=== PATIENT | female | born 1945 | race Caucasian/White ===

== ENCOUNTER 2018-10-10 23:13 | Emergency (ER) | payer OTHER, BC ==
[2018-10-10 23:16] VITALS: BP 132/78; PULSE 107; TEMP 98.2; BMI 25.4
--- NOTE | 2018-10-10 23:49 | PDOC ---
History of Present Illness - General Chief Complaint: Back Pain Stated Complaint: BACK PAIN Time Seen by Provider: 10/10/18 23:48 - History of Present Illness Initial Comments: 73 year old female with HTN presenting with right mid back pain for the past two weeks. States that the pain was sudden onset and she finds it hard to breath in completely. She denies any recent travel or OCP use. 10/11/18 00:35 Past History - Past Medical History Allergies/Adverse Reactions: Allergies Allergy/AdvReac Type Severity Reaction Status Date / Time Penicillins Allergy Verified 10/10/18 23:15 Home Medications: Ambulatory Orders Pantoprazole Sodium [Protonix -] 40 mg PO DAILY #30 tablet.ec 06/20/15 Cyclobenzaprine HCl [Flexeril -] 10 mg PO HS #20 tablet 10/11/18 Anemia: No Asthma: No Cancer: Yes (LT BREAST) Cardiac Disorders: No CVA: No COPD: No CHF: No Dementia: No Diabetes: No GI Disorders: Yes (ABD. PAIN, REFLUX, COLON POLYP, HEMORRHOIDS) Disorders: Yes (EPIGASTRIC PAIN,VOMITING,VIRAL GASTROENTERITIS,HEMORRHOIDS, COLON POLYPS,) HTN: Yes Hypercholesterolemia: No Liver Disease: No Seizures: No Thyroid Disease: No - Surgical History Abdominal Surgery: No Appendectomy: No Cardiac Surgery: No Cholecystectomy: No Lung Surgery: No Neurologic Surgery: No Orthopedic Surgery: No - Suicide/Smoking/Psychosocial Hx Smoking History: Never smoked Have you smoked in the past 12 months: No If you are a former smoker, when did you quit?: 1979 Hx Alcohol Use: No Drug/Substance Use Hx: No Substance Use Type: None Hx Substance Use Treatment: No *Physical Exam - Vital Signs Last Vital Signs Temp Pulse Resp BP Pulse Ox 98.2 F 107 H 20 132/78 99 10/10/18 23:15 10/10/18 23:15 10/10/18 23:15 10/10/18 23:15 10/10/18 23:15 Moderate Sedation - Procedure Monitoring Vital Signs: Procedure Monitoring Vital Signs Temperature 98.2 F 10/10/18 23:15 Pulse Rate 107 H 10/10/18 23:15 Respiratory Rate 20 10/10/18 23:15 Blood Pressure 132/78 10/10/18 23:15 O2 Sat by Pulse Oximetry (%) 99 10/10/18 23:15 ED Treatment Course - LABORATORY CBC & Chemistry Diagram: 10/11/18 01:16 10/11/18 01:16 *DC/Admit/Observation/Transfer Diagnosis at time of Disposition: Back pain Qualifiers: Back pain location: low back pain Chronicity: acute Back pain laterality: right Sciatica presence: without sciatica Qualified Code(s): M54.5 - Low back pain - Discharge Dispostion Disposition: HOME Condition at time of disposition: Improved - Prescriptions Prescriptions: Cyclobenzaprine HCl [Flexeril -] 10 mg PO HS #20 tablet - Referrals Referrals: [facility] [Provider Group] - Patient Instructions Printed Discharge Instructions: DI for Low Back Pain Additional Instructions: You do not have a clot. Please use Tylenol for your back pain and flexural as directed. Please follow up with your primary care doctor or you can use our clinic if needed. Pelae return ot the ED if you have new or worsening symptoms. - Post Discharge Activity
[2018-10-11] MEDS ORDERED: diazePAM 5 MG TABLET PO ONE (00:37)
[2018-10-11] MEDS ORDERED: diazePAM 5 MG TABLET ONE (00:57)
--- NOTE | 2018-10-11 01:01 | PDOC ---
Attending Attestation - Resident Resident Name: SashaFlorecitabethjoseph - ED Attending Attestation I have performed the following: I have examined & evaluated the patient, The case was reviewed & discussed with the resident, I agree w/resident's findings & plan - HPI HPI: 10/11/18 01:33 Ms. Javed is a 73 year old female, with past medical history significant for breast cancer s/p L breast lumpectomy and HTN, presents to the emergency department with 2 weeks of right sided back pain, worse with movement. she denies trauma or falls, but does admit to carrying her grandchild around. she gets short of breath with movement and when the back spasms occur. no cp, AP, flank pain, urinary sx, hematuria, chatman or dizziness, neuro changes, weakness or paresthesias. - Physicial Exam PE: 10/11/18 01:01 NAD, well appearing, PERRL, EOMI, MMM, nl conjunctiva, anicteric; neck supple. lungs clear, RRR, abdomen soft nontender. +right thoracic back TTP and palp spasms, paraspinal. no CVAT. GIL x4, no focal neuro deficits. No peripheral edema. normal color for ethnicity, WWP. 10/11/18 01:35 - Medical Decision Making 10/11/18 01:01 See HPI for details Vital signs reviewed, wnl. tachycardia 2/2 pain. no hypoxia, lungs clear Prior notes reviewed, including admissions, discharges and consultations. laboratory results and imaging reviewed, basic labs and lytes wnl, notable for_ . UA_ dimer_elevated 1880 - will need CTA chest to r/o PE (less likely dissection, as this is 2 wk history, no neuro deficits and no acute onset cp). EKG normal sinus rhythm, no interval abnormalities, narrow QRS, ST and T wave segments and morphology normal. Nonspecific T wave abnormalities ED course: analgesia, topical lidoderm, valium for intense spasms. reassess. most likely msk strain vs spasms. with very reproducible tenderness along back and 2 week history considered but unlikely dissection or ACS, as no cp. doubt infectious or renal/ colic. Dispo: Pt informed of my clinical impression, treatment recommendations and disposition plan. All questions answered to patient's satisfaction and expressed understanding and comfort with this. Reasons for returning to the ED sooner discussed with the patient otherwise, follow up with primary care physician. At the time of discharge, the patient is alert, clinically improved, tolerating po and verbalizes understanding of instructions. Patient does not suffer from an acute life-threatening medical condition at this time she is safe for outpatient follow-up. 10/11/18 01:35 10/11/18 01:49 <Hoda Westbrook - Last Filed: 10/11/18 01:49> - Medical Decision Making 10/11/18 03:54 Patient Name: MARY JAVED THIS IS A PRELIMINARY REPORT FROM [facility] DATE OF SERVICE: 2018-10-11 02:47:30 IMAGES: [id number] EXAM: CT chest with contrast HISTORY: Shortness of breath and back pain COMPARISON: None. FINDINGS: Serial axial image through the chest were obtained during the bolus infusion of iodinated contrast material. Coronal and sagittal reformatted images are available for evaluation. Coronal and sagittal MIP reconstruction images of the chest are also provided. There are no prior exams for comparison. The heart is not enlarged. There is no aortic aneurysm or dissection. There is no pulmonary embolus. The tracheobronchial tree is intact. The lungs show mild bilateral atelectasis, mostly in the lower lobes. There is no bulky mediastinal or hilar lymphadenopathy. There is no fracture or pneumothorax. There is no pleural or pericardial effusion. The bony thorax is unremarkable. The left kidney is not fully seen but there is the question of mild to moderate left hydronephrosis. IMPRESSION: Question left-sided hydronephrosis. Left kidney is not completely visualized. Scattered areas of subsegmental atelectasis are seen. No consolidations are observed. NO PULMONARY EMBOLISM. The aorta has normal caliber. <Sheba Echevarria - Last Filed: 10/11/18 03:55> Heart Score/ECG Review - ECG Impressions Normal ECG: No Comment:: 10/11/18 01:01 EKG normal sinus rhythm, no interval abnormalities, narrow QRS, ST and T wave segments and morphology normal. Nonspecific T wave abnormalities <Hoda Westbrook - Last Filed: 10/11/18 01:49>
[2018-10-11] MEDS ORDERED: LIDOCAINE 5% TOPICAL PATCH TP ONE (01:32)
[2018-10-11] MEDS ORDERED: LIDOCAINE 5% TOPICAL PATCH ONE (01:36)
[2018-10-11 01:43] LABS: INR 0.93 (0.83-1.09)
[2018-10-11 01:44] LABS: URINE APPEARANCE CLEAR; URINE BILIRUBIN NEGATIVE (<2.0 mg/dL); URINE COLOR YELLOW; URINE GLUCOSE (UA) NEGATIVE (NEGATIVE); URINE KETONE TRACE (NEGATIVE); URINE LEUK ESTERASE TRACE (NEGATIVE); URINE NITRITE NEGATIVE (NEGATIVE); URINE PROTEIN NEGATIVE (NEGATIVE)
[2018-10-11] MEDS ORDERED: KETOROLAC TROMETHAMINE 15 MG/ML VIAL IVPUSH ONE (01:48)
[2018-10-11 01:52] LABS: ALBUMIN 3.4 g/dl (3.4-5.0); ALK PHOS 90 U/L (45-117); ANION GAP 4 MMOL/L (8-16); BILIRUBIN,TOTAL 0.2 mg/dL (0.2-1); BLOOD UREA NITROGEN 18 mg/dL (7-18); CALCIUM 8.9 mg/dL (8.5-10.1); CHLORIDE 104 mmol/L (98-107); CO2 32 mmol/L (21-32); CREATININE 0.9 mg/dL (0.55-1.3); GLUCOSE,RANDOM 113 mg/dL (74-106); POTASSIUM 3.8 mmol/L (3.5-5.1); SGOT/AST 18 U/L (15-37); SGPT/ALT 22 U/L (13-61); SODIUM 141 mmol/L (136-145); TOT PROT 6.6 g/dl (6.4-8.2)
[2018-10-11 01:54] LABS: EPI CELLS RARE /HPF (FEW); URINE HYALINE CAST 3 /lpf; URINE MUCUS RARE
[2018-10-11] MEDS ORDERED: KETOROLAC TROMETHAMINE 15 MG/ML VIAL ONE (01:57)
[2018-10-11] MEDS ORDERED: SODIUM CHLORIDE 0.9% 500 ML INFUS.BAG IV ONE (02:02)
[2018-10-11 02:12] LABS: BASO % 0.5 % (0-2.0); EOS % 2.6 % (0-4.5); HEMATOCRIT 39.4 % (32.4-45.2); HEMOGLOBIN 14.1 GM/dL (10.7-15.3); LYMPH % 17.8 % (8-40); MCH 35.1 pg (25.7-33.7); MCHC 35.8 g/dl (32.0-36.0); MEAN CELL VOLUME 97.8 fl (80-96); MEAN PLT VOLUME 8.2 fl (7.5-11.1); MONO % 9.4 % (3.8-10.2); NEUT % 69.7 % (42.8-82.8); PLATELET COUNT 240 K/MM3 (134-434); RBC 4.03 M/mm3 (3.60-5.2); RDW 12.8 % (11.6-15.6); WHITE BLOOD COUNT 7.9 K/mm3 (4.0-10.0)
[2018-10-11] MEDS ORDERED: LIDOCAINE PATCH REMOVAL MC SCH (22:00)
--- NOTE | 2018-10-11 22:02 | EKG ---
Test Reason : Blood Pressure : / mmHG Vent. Rate : 085 BPM Atrial Rate : 085 BPM P-R Int : 144 ms QRS Dur : 070 ms QT Int : 368 ms P-R-T Axes : 048 027 083 degrees QTc Int : 437 ms NORMAL SINUS RHYTHM POSSIBLE LEFT ATRIAL ENLARGEMENT NONSPECIFIC ST AND T WAVE ABNORMALITY ABNORMAL ECG WHEN COMPARED WITH ECG OF 31-JAN-2015 15:23, Confirmed by JOYCE MONCADA MD ([id number]) on 10/11/2018 10:02:02 PM Referred By: Confirmed By:JOYCE MONCADA MD
== END 2018-10-11 04:14 | disposition home or self-care (01) ==
LOC: JER 23:13
PROC: 3E0333Z Introduction of Anti-inflammatory into Peripheral Vein, Percutaneous Approach (ICD-10-PCS; principal; 2018-10-10)
DX: M54.5 Low back pain (principal); Z87.448 Personal history of other diseases of urinary system; Z87.19 Personal history of other diseases of the digestive system
CPT/HCPCS: 36415; 71275-TC; 80053; 81003; 81015; 85025; 85379; 85610; 93005; 93010; 96374; 99283-25

== ENCOUNTER 2019-09-09 08:19 | Emergency (ER) | payer OTHER, BC ==
[2019-09-09 08:35] VITALS: BMI 26.9
[2019-09-09] MEDS ORDERED: SODIUM CHLORIDE 0.9% 500 ML INFUS.BAG IV ONE ×2 (09:06→10:46)
[2019-09-09] MEDS ORDERED: KETOROLAC TROMETHAMINE 30 MG/1 ML VIAL IVPUSH ONE (09:07)
[2019-09-09] MEDS ORDERED: METOCLOPRAMIDE HCL INJECTION 10 MG/2 ML VIAL IVPUSH ONE (09:07)
[2019-09-09] MEDS ORDERED: KETOROLAC TROMETHAMINE 30 MG/1 ML VIAL ONE (09:22)
[2019-09-09] MEDS ORDERED: METOCLOPRAMIDE HCL INJECTION 10 MG/2 ML VIAL ONE (09:22)
[2019-09-09 10:43] VITALS: BP 134/67; PULSE 89; TEMP 98.8
--- NOTE | 2019-09-09 11:33 | PDOC ---
History of Present Illness - General Chief Complaint: Cold Symptoms Stated Complaint: HEADACHES/ VOMITING/BODYACHES Time Seen by Provider: 09/09/19 08:49 History Source: Patient Exam Limitations: No Limitations - History of Present Illness Initial Comments: 09/09/19 11:27 74-year-old female with history of hypertension, migraine, GERD presents complaining of dry cough, frontal headache similar to prior migraine headaches, photosensitivity, one episode of vomiting yesterday, nausea, subjective fever, chills, earache and sore throat x3 days. Denies rash, neck pain, recent travel , sick contacts, shortness of breath, chest pain, abdominal pain, diarrhea or any other complaint. Took p.o. acetaminophen at 3:30 AM today without relief of symptoms. ROS: See HPI PE: GENERAL: Appears uncomfortable, NAD HEAD: NCAT EYES: Pupils equal, round and reactive to light, sclera anicteric, conjunctiva clear ENT: Normal bilateral ear canals, normal TM's pharynx: no erythema, no exudate, uvula midline NECK: supple CHEST: nontender RESP: clear, no w/r/r CARDIO: rrr, no m/g/r ABD: +BS, soft, nontender, non distended BACK: no midline spinal ttp, no CVAT EXTREMITIES: Normal range of motion, no edema NEUROLOGICAL: Normal speech, normal gait SKIN: Warm, Dry 09/09/19 11:29 Is this a multiple visit Asthma Patient?: No Past History - Past Medical History Allergies/Adverse Reactions: Allergies Allergy/AdvReac Type Severity Reaction Status Date / Time Penicillins Allergy Verified 09/09/19 08:24 Home Medications: Ambulatory Orders Pantoprazole Sodium [Protonix -] 40 mg PO DAILY #30 tablet.ec 06/20/15 Cyclobenzaprine HCl [Flexeril -] 10 mg PO HS #20 tablet 10/11/18 Benzonatate [Tessalon Pearls -] 100 mg PO TID #21 capsule 09/09/19 Anemia: No Asthma: No Cancer: Yes (LT BREAST) Cardiac Disorders: No CVA: No COPD: No CHF: No Dementia: No Diabetes: No GI Disorders: Yes (ABD. PAIN, REFLUX, COLON POLYP, HEMORRHOIDS) Disorders: Yes (EPIGASTRIC PAIN,VOMITING,VIRAL GASTROENTERITIS,HEMORRHOIDS, COLON POLYPS,) HTN: Yes Hypercholesterolemia: No Liver Disease: No Seizures: No Thyroid Disease: No - Surgical History Abdominal Surgery: No Appendectomy: No Cardiac Surgery: No Cholecystectomy: No Lung Surgery: No Neurologic Surgery: No Orthopedic Surgery: No - Psycho Social/Smoking Cessation Hx Smoking History: Never smoked Have you smoked in the past 12 months: No If you are a former smoker, when did you quit?: 1979 Hx Alcohol Use: Yes Drug/Substance Use Hx: No Substance Use Type: None Hx Substance Use Treatment: No *Physical Exam - Vital Signs Last Vital Signs Temp Pulse Resp BP Pulse Ox 98.8 F 89 18 134/67 98 09/09/19 10:40 09/09/19 10:40 09/09/19 10:40 09/09/19 10:40 09/09/19 10:40 ED Treatment Course - RADIOLOGY Radiology Studies Ordered: Category Date Time Status CHEST PA & LAT [RAD] Stat Radiology 09/09/19 09:07 Completed - Medications Given in the ED: ED Medications Discontinued Medications Generic Name Dose Route Start Last Admin Trade Name Apple PRN Reason Stop Dose Admin Ketorolac Tromethamine 30 mg 09/09/19 09:07 09/09/19 09:29 Toradol Injection - IVPUSH 09/09/19 09:08 30 mg ONCE ONE Administration Metoclopramide HCl 10 mg 09/09/19 09:07 09/09/19 09:28 Reglan Injection - IVPUSH 09/09/19 09:08 10 mg ONCE ONE Administration Sodium Chloride 1,000 ml 09/09/19 09:06 09/09/19 09:28 Normal Saline - IV 09/09/19 09:07 1,000 ml ONCE ONE Administration Sodium Chloride 1,000 ml 09/09/19 10:46 09/09/19 10:53 Normal Saline - IV 09/09/19 10:47 1,000 ml ONCE ONE Administration Medical Decision Making - Medical Decision Making 09/09/19 11:30 74-year-old female reports complaint of frontal headache, photosensitivity, nausea, one episode of vomiting yesterday, sore throat and bilateral earache x3 days. Chest x-ray normal Patient feels better after IV fluids x 2L IV Toradol and IV Reglan will send prescription for Cheko Waldron to pharmacy Advised to follow-up with PMD Return precautions discussed Discharge - Discharge Information Problems reviewed: Yes Clinical Impression/Diagnosis: Viral illness Condition: Stable Disposition: HOME - Admission No - Follow up/Referral Referrals: Florentin Camejo MD [Primary Care Provider] - - Patient Discharge Instructions Additional Instructions: Rest, remain hydrated Take Tessalon Perles as directed Take acetaminophen 500 mg every 6 hours as needed for pain Follow-up with your primary care doctor within 2 to 3 days Return to ED if nausea, vomiting, worsening headache, fever, chills or any concerns - Post Discharge Activity
== END 2019-09-09 11:39 | disposition home or self-care (01) ==
LOC: JER 08:19 → JERFT 08:19
PROC: 3E0337Z Introduction of Electrolytic and Water Balance Substance into Peripheral Vein, Percutaneous Approach (ICD-10-PCS; principal; 2019-09-09)
PROC: 3E0333Z Introduction of Anti-inflammatory into Peripheral Vein, Percutaneous Approach (ICD-10-PCS; 2019-09-09)
PROC: 3E033GC Introduction of Other Therapeutic Substance into Peripheral Vein, Percutaneous Approach (ICD-10-PCS; 2019-09-09)
DX: B34.9 Viral infection, unspecified (principal); Z88.0 Allergy status to penicillin; Z87.891 Personal history of nicotine dependence; K21.9 Gastro-esophageal reflux disease without esophagitis; I10 Essential (primary) hypertension; Z85.3 Personal history of malignant neoplasm of breast
CPT/HCPCS: 71046-TC-FY; 96374; 96375; 99281-25

== ENCOUNTER 2019-09-11 08:28 | Emergency (ER) | payer OTHER, BC ==
[2019-09-11 08:35] VITALS: BMI 26.2
--- NOTE | 2019-09-11 08:38 | PDOC ---
History of Present Illness - General Chief Complaint: Cold Symptoms Stated Complaint: HEADACHES/ VOMITING History Source: Patient Exam Limitations: No Limitations Past History - Travel Traveled outside of the country in the last 30 days: No Close contact w/someone who was outside of country & ill: No - Past Medical History Allergies/Adverse Reactions: Allergies Allergy/AdvReac Type Severity Reaction Status Date / Time Penicillins Allergy Verified 09/11/19 08:31 Home Medications: Ambulatory Orders Pantoprazole Sodium [Protonix -] 40 mg PO DAILY #30 tablet.ec 06/20/15 Cyclobenzaprine HCl [Flexeril -] 10 mg PO HS #20 tablet 10/11/18 Benzonatate [Tessalon Pearls -] 100 mg PO TID #21 capsule 09/09/19 Guaifenesin AC [Robitussin AC] 10 ml PO Q8H #100 ml MDD 3 09/11/19 Metoclopramide HCl [Reglan -] 10 mg PO TID #21 tablet 09/11/19 Oseltamivir Phosphate [Tamiflu] 75 mg PO BID #10 capsule 09/11/19 Anemia: No Asthma: No Cancer: Yes (LT BREAST) Cardiac Disorders: No CVA: No COPD: No CHF: No Dementia: No Diabetes: No GI Disorders: Yes (ABD. PAIN, REFLUX, COLON POLYP, HEMORRHOIDS) Disorders: Yes (EPIGASTRIC PAIN,VOMITING,VIRAL GASTROENTERITIS,HEMORRHOIDS, COLON POLYPS,) HTN: Yes Hypercholesterolemia: No Liver Disease: No Seizures: No Thyroid Disease: No - Surgical History Abdominal Surgery: No Appendectomy: No Cardiac Surgery: No Cholecystectomy: No Lung Surgery: No Neurologic Surgery: No Orthopedic Surgery: No - Psycho Social/Smoking Cessation Hx Smoking History: Never smoked Have you smoked in the past 12 months: No If you are a former smoker, when did you quit?: 1979 Hx Alcohol Use: No Drug/Substance Use Hx: No Substance Use Type: None Hx Substance Use Treatment: No Review of Systems - Review of Systems Able to Perform ROS?: Yes Comments:: 09/11/19 08:58 CONSTITUTIONAL: Present: Chills, body aches Absent: diaphoresis, generalized weakness, malaise, loss of appetite HEENT: Absent: rhinorrhea, nasal congestion, throat pain, throat swelling, difficulty swallowing, mouth swelling, ear pain, eye pain, visual Changes CARDIOVASCULAR: Absent: chest pain, loss of consciousness, palpitations, irregular heart rate, peripheral edema RESPIRATORY: Absent: cough, shortness of breath, dyspnea with exertion, orthopnea, wheezing, stridor, hemoptysis GASTROINTESTINAL: Present: Nausea absent: abdominal pain, abdominal distension, nausea, vomiting, diarrhea, constipation, melena, hematochezia GENITOURINARY: Absent: dysuria, frequency, urgency, hesitancy, hematuria, flank pain, genital pain MUSCULOSKELETAL: Absent: myalgia, arthralgia, joint swelling SKIN: Absent: rash, itching, pallor HEMATOLOGIC/IMMUNOLOGIC: Absent: easy bleeding, easy bruising, lymphadenopathy, frequent infections ENDOCRINE: Absent: unexplained weight gain, unexplained weight loss, heat intolerance, cold intolerance NEUROLOGIC: Present: Headache Absent: focal weakness or paresthesias, dizziness, unsteady gait, seizure, mental status changes, bladder or bowel incontinence PSYCHIATRIC: Absent: anxiety, depression, suicidal or homicidal ideation, hallucinations. Is the patient limited Uzbek proficient: No *Physical Exam - Vital Signs Last Vital Signs Temp Pulse Resp BP Pulse Ox 99.0 F 102 H 18 118/74 100 09/11/19 08:31 09/11/19 08:31 09/11/19 08:31 09/11/19 08:31 09/11/19 08:31 - Physical Exam 09/11/19 08:59 GENERAL: Well developed, well nourished. Awake and alert. Mild distress, dry heaving. HEENT: Normocephalic, atraumatic. PERRLA, EOMI. No conjunctival pallor. Sclera are non- icteric. Moist mucous membranes. Oropharynx is clear. NECK: Supple. Full ROM. No JVD. Carotid pulses 2+ and symmetric, without bruits. No thyromegaly. No lymphadenopathy. CARDIOVASCULAR: Regular rate and rhythm. No murmurs, rubs, or gallops. Distal pulses are 2+ and symmetric. PULMONARY: No evidence of respiratory distress. Lungs clear to auscultation bilaterally. No wheezing, rales or rhonchi. ABDOMINAL: Soft. Non-tender. Non-distended. No rebound or guarding. No organomegaly. Normoactive bowel sounds. MUSCULOSKELETAL Normal range of motion at all joints. No bony deformities or tenderness. No CVA tenderness. EXTREMITIES: No cyanosis. No clubbing. No edema. No calf tenderness. SKIN: Warm and dry. Normal capillary refill. No rashes. No jaundice. NEUROLOGICAL: Alert, awake, appropriate. Cranial nerves 2-12 intact. No deficits to light touch and temperature in face, upper extremities and lower extremities. No motor deficits in the in face, upper extremities and lower extremities. Normoreflexic in the upper and lower extremities. Normal speech. Toes are down- going bilaterally. Gait is normal without ataxia. PSYCHIATRIC: Cooperative. Good eye contact. Appropriate mood and affect. ED Treatment Course - LABORATORY CBC & Chemistry Diagram: 09/11/19 09:35 09/11/19 09:35 Medical Decision Making - Medical Decision Making 09/11/19 09:04 The patient is a 74-year-old female with past medical history of hypertension, migraines, GERD, presents to the ER today for dry cough, headache, nausea, subjective fever, chills and body aches. She states she was seen here 2 days ago for the same. She reports not feeling better. She has now had 1 week of symptoms. She tried taking Tylenol and Zofran yesterday for her symptoms without relief. Denies vomiting, chest pain, shortness of breath, difficulty breathing. A/P: Viral syndrome On exam lungs are clear to auscultation bilaterally, ears showed no evidence of infection. Throat is unremarkable. Patient is dry heaving in exam room. Likely a viral syndrome causing a migraine given the cough. We will give migraine cocktail, draw basic labs, and do a head CT as this is patient's repeat visit this week. Reevaluate 09/11/19 11:37 Flu B positive Lab work is unremarkable Head CT is without change from her previous. No acute pathology. Will dc home with supportive therapy Patient help with her primary care doctor this week. I discussed the physical exam findings, ancillary test results and final diagnoses with the patient. I answered all of the patient's questions. The patient was satisfied with the care received and felt comfortable with the discharge plan and treatment plan. The Patient agrees to follow up with the primary care physician/specialist within 24-72 hours. Return precautions were given. Discharge - Discharge Information Problems reviewed: Yes Clinical Impression/Diagnosis: Influenza B Condition: Stable Disposition: HOME - Admission No - Follow up/Referral Referrals: Florentin Camejo MD [Primary Care Provider] - - Patient Discharge Instructions Patient Printed Discharge Instructions: DI for Influenza -- Adult Additional Instructions: You have the flu. This is a virus that will get better on its own in approximately 7-10 days. You will most likely have a fever for 7-10 days because of the flu. This is to be expected. Drink plenty of fluids to prevent dehydration and get plenty of rest. Take the Reglan as needed for nausea or vomiting. You may use the Robitussin with codeine every 8 hours as needed for cough. Do not drink or drive as this medication may make you drowsy. Warm tea and cough drops may help your symptoms as well. Take the tamiflu twice a day for 5 days to help reduce the symptoms of the flu. This medication will not cure the flu. Take Motrin as directed for pain and fever. Take all other medications as prescribed. Follow up with your primary care doctor this week Return to the ED for difficulty breathing, shortness of breath, weakness, or if you have any other changes in your symptoms. - Post Discharge Activity Work/Back to School Note: Back to Work
[2019-09-11] MEDS ORDERED: METOCLOPRAMIDE HCL INJECTION 10 MG/2 ML VIAL IVPB ONE (08:54)
[2019-09-11] MEDS ORDERED: ACETAMINOPHEN 1000 MG/100 ML VIAL (NON FORMULARY) IVPB ONE (08:54)
[2019-09-11] MEDS ORDERED: SODIUM CHLORIDE 1,000 ML IV STA (08:54)
[2019-09-11] MEDS ORDERED: METOCLOPRAMIDE HCL INJECTION 10 MG/2 ML VIAL ONE (09:11)
[2019-09-11] MEDS ORDERED: ACETAMINOPHEN INJECTION 100 ML IVPB ONE ×2 (09:30→13:26)
[2019-09-11 10:09] LABS: BASO % 0.4 % (0-2.0); HEMATOCRIT 43.8 % (32.4-45.2); LYMPH % 14.4 % (8-40); MCHC 34.3 g/dl (32.0-36.0); MEAN CELL VOLUME 96.1 fl (80-96); MONO % 11.3 % (3.8-10.2); NEUT % 73.9 % (42.8-82.8); PLATELET COUNT 195 K/MM3 (134-434); RBC 4.55 M/mm3 (3.60-5.2); WHITE BLOOD COUNT 4.3 K/mm3 (4.0-10.0)
[2019-09-11 10:22] LABS: ALBUMIN 3.7 g/dl (3.4-5.0); BILIRUBIN,TOTAL 0.3 mg/dL (0.2-1); BLOOD UREA NITROGEN 12.8 mg/dL (7-18); CALCIUM 9.3 mg/dL (8.5-10.1); CREATININE 1.2 mg/dL (0.55-1.3); POTASSIUM 4.3 mmol/L (3.5-5.1); TOT PROT 7.3 g/dl (6.4-8.2)
[2019-09-11] MEDS ORDERED: KETOROLAC TROMETHAMINE 15 MG/ML VIAL IVPUSH ONE (10:35)
[2019-09-11] MEDS ORDERED: KETOROLAC TROMETHAMINE 15 MG/ML VIAL ONE (10:43)
[2019-09-11 11:08] VITALS: BP 127/91; PULSE 86; TEMP 99.1
== END 2019-09-11 12:12 | disposition home or self-care (01) ==
LOC: JERFT 08:28
PROC: 3E033NZ Introduction of Analgesics, Hypnotics, Sedatives into Peripheral Vein, Percutaneous Approach (ICD-10-PCS; principal; 2019-09-11)
PROC: 3E033GC Introduction of Other Therapeutic Substance into Peripheral Vein, Percutaneous Approach (ICD-10-PCS; 2019-09-11)
PROC: 3E0333Z Introduction of Anti-inflammatory into Peripheral Vein, Percutaneous Approach (ICD-10-PCS; 2019-09-11)
DX: J10.1 Influenza due to other identified influenza virus with other respiratory manifestations (principal); Z88.0 Allergy status to penicillin; I10 Essential (primary) hypertension; K21.9 Gastro-esophageal reflux disease without esophagitis
CPT/HCPCS: 36415; 70450-TC; 80053; 85025; 87804; 96374; 96375; 99284-25; J0131; J7030

== ENCOUNTER 2022-04-23 15:47 | Emergency (ER) | payer OTHER, BC ==
[2022-04-23 16:06] VITALS: BMI 25.9
[2022-04-23] MEDS ORDERED: ACETAMINOPHEN 325 MG TABLET (FP) PO ONE (17:04)
[2022-04-23] MEDS ORDERED: ONDANSETRON 4 MG TABLET PO ONE (17:05)
[2022-04-23] MEDS ORDERED: ONDANSETRON *ODT* 4 MG TABLET ONE (18:10)
[2022-04-23] MEDS ORDERED: ACETAMINOPHEN 325 MG TABLET (FP) ONE (18:11)
[2022-04-23 18:48] VITALS: BP 173/65; PULSE 80; RESP 15; TEMP 98.5
== END 2022-04-23 18:50 | disposition home or self-care (01) ==
LOC: JER 15:47
DX: U07.1 COVID-19 (principal); R53.83 Other fatigue
CPT/HCPCS: 0241U-QW; 71046-TC-FY; 99284-25

== ENCOUNTER 2022-06-13 14:44 | Inpatient (IN) | payer OTHER, BC ==
[2022-06-13] MEDS ORDERED: ONDANSETRON 4 MG/2 ML VIAL IVPUSH ONE (16:02)
[2022-06-13] MEDS ORDERED: LACTATED RINGERS SOLUTION 1000 ML INFUS.BAG IV ONE (16:02)
[2022-06-13] MEDS ORDERED: FAMOTIDINE 20 MG/50 ML IVPB 20 MG/50 ML MG IVPB ONE ×2 (16:03→16:19)
[2022-06-13] MEDS ORDERED: PANTOPRAZOLE SODIUM 40 MG VIAL IVPUSH ONE (16:03)
[2022-06-13] MEDS ORDERED: ONDANSETRON 4 MG/2 ML VIAL ONE (16:18)
[2022-06-13] MEDS ORDERED: PANTOPRAZOLE SODIUM 40 MG VIAL ONE (16:18)
[2022-06-13 17:01] LABS: BASO % 0.8 % (0-2.0); EOS % 0.3 % (0-4.5); HEMATOCRIT 41.1 % (32.4-45.2); HEMOGLOBIN 14.2 GM/dL (10.7-15.3); LYMPH % 16.3 % (8-40); MCH 33.3 pg (25.7-33.7); MCHC 34.5 g/dl (32.0-36.0); MEAN CELL VOLUME 96.6 fl (80-96); MEAN PLT VOLUME 8.1 fl (7.5-11.1); MONO % 7.6 % (3.8-10.2); PLATELET COUNT 212 10^3/uL (134-434); RBC 4.25 M/mm3 (3.60-5.2); RDW 13.5 % (11.6-15.6); WHITE BLOOD COUNT 8.5 K/mm3 (4.0-10.0)
[2022-06-13 17:04] LABS: EPI CELLS 5 /uL (0-25.1); HYALINE CASTS 0 /uL (0-3.1); PH,URINE 6.5 (5.0-8.0); URINE APPEARANCE CLEAR; URINE BACTERIA 8 /uL (0-1359); URINE BILIRUBIN NEGATIVE (NEGATIVE); URINE COLOR YELLOW; URINE GLUCOSE (UA) NEGATIVE (NEGATIVE); URINE KETONE 1+ (NEGATIVE); URINE LEUK ESTERASE NEGATIVE (NEGATIVE); URINE NITRITE NEGATIVE (NEGATIVE); URINE PROTEIN NEGATIVE (NEGATIVE); URINE RBC 39 /uL (0-23.9); URINE UROBILINOGEN 0.2 mg/dL (0.2-1.0); URINE WBC 4 /uL (0-25.8)
[2022-06-13 17:25] LABS: ALBUMIN 4.1 g/dl (3.4-5.0); BLOOD UREA NITROGEN 8.3 mg/dL (7-18); CALCIUM 9.8 mg/dL (8.5-10.1); MAGNESIUM 2.3 mg/dL (1.8-2.4)
[2022-06-13 17:30] LABS: BILIRUBIN,TOTAL 0.7 mg/dL (0.2-1); TOT PROT 7.2 g/dl (6.4-8.2)
[2022-06-13] MEDS ORDERED: POTASSIUM CHLORIDE TABS 20 MEQ TABLET.ER (FP) PO ONE (19:46)
[2022-06-13] MEDS ORDERED: PIPERACILLIN/TAZOB 3.375 GM 3.375 GM in DEXTROSE 5%-WATER - 50 ML IVPB SCH (21:00)
[2022-06-13] MEDS ORDERED: POTASSIUM CHLORIDE ORAL LIQUID 20 MEQ/15 ML ONE (21:13)
[2022-06-14] MEDS ORDERED: REMDESIVIR 200 MG in SODIUM CHLORIDE 250 ML IVPB ONE (01:30)
[2022-06-14] MEDS: MIRTAZAPINE 15 MG TABLET (FP) PO SCH ×2 (02:16→21:09)
[2022-06-14] MEDS: ACETAMINOPHEN 1000 MG/100 ML BAG IVPB PRN ×2 (05:56→18:14)
[2022-06-14] MEDS: clonazePAM 0.5 MG TABLET PO SCH (10:58)
[2022-06-14] MEDS: SUCRALFATE 1 GM/10 ML UNIT DOSE CUPS PO SCH ×3 (10:58→21:09)
[2022-06-14] MEDS: ENOXAPARIN NA (PORCINE) 40 MG/0.4 ML DISP.SYRIN SQ SCH (10:58)
[2022-06-14] MEDS: PANTOPRAZOLE SODIUM 40 MG VIAL IVPUSH SCH ×2 (10:58→21:08)
[2022-06-14 11:26] LABS: BASO % 0.4 % (0-2.0); EOS % 0.4 % (0-4.5); HEMATOCRIT 38.6 % (32.4-45.2); HEMOGLOBIN 13.1 GM/dL (10.7-15.3); LYMPH % 11.2 % (8-40); MCH 32.7 pg (25.7-33.7); MEAN CELL VOLUME 96.2 fl (80-96); MEAN PLT VOLUME 8.5 fl (7.5-11.1); MONO % 6.1 % (3.8-10.2); NEUT % 81.9 % (42.8-82.8); PLATELET COUNT 194 10^3/uL (134-434); RBC 4.01 M/mm3 (3.60-5.2); RDW 13.5 % (11.6-15.6); WHITE BLOOD COUNT 6.7 K/mm3 (4.0-10.0)
[2022-06-14 11:55] LABS: ALBUMIN 3.4 g/dl (3.4-5.0)
[2022-06-14 11:57] LABS: BILIRUBIN,TOTAL 0.5 mg/dL (0.2-1)
[2022-06-14 11:58] LABS: CREATININE 0.9 mg/dL (0.55-1.3); PHOSPHOROUS 2.5 mg/dL (2.5-4.9)
[2022-06-14] MEDS: ONDANSETRON 4 MG/2 ML VIAL IVPB SCH ×4 (12:13→21:09)
[2022-06-14 19:12] VITALS: RESP 18
[2022-06-14] MEDS ORDERED: clonazePAM 0.25 MG ODT TABLETS SL ONE (19:52)
[2022-06-15] MEDS: LATANOPROST 0.005% OPHTH SOLN 2.5ML BOTTLE OU SCH ×2 (00:35→22:54)
[2022-06-15] MEDS ORDERED: REMDESIVIR 100 MG in SODIUM CHLORIDE 250 ML IVPB SCH (01:00)
[2022-06-15] MEDS: ONDANSETRON 4 MG/2 ML VIAL IVPB PRN ×2 (04:22→23:31)
[2022-06-15] MEDS: SUCRALFATE 1 GM/10 ML UNIT DOSE CUPS PO SCH ×5 (07:10→21:05)
[2022-06-15 08:41] LABS: HEMATOCRIT 37.2 % (32.4-45.2); MCH 33.3 pg (25.7-33.7); MEAN CELL VOLUME 95.2 fl (80-96); MEAN PLT VOLUME 8.6 fl (7.5-11.1); PLATELET COUNT 169 10^3/uL (134-434); RBC 3.91 M/mm3 (3.60-5.2); RDW 13.7 % (11.6-15.6); WHITE BLOOD COUNT 5.6 K/mm3 (4.0-10.0)
[2022-06-15 09:19] LABS: CALCIUM 8.7 mg/dL (8.5-10.1)
[2022-06-15 09:20] LABS: ALBUMIN 3.2 g/dl (3.4-5.0); BLOOD UREA NITROGEN 6.6 mg/dL (7-18)
[2022-06-15 09:22] LABS: MAGNESIUM 2.1 mg/dL (1.8-2.4)
[2022-06-15 09:23] LABS: CREATININE 0.8 mg/dL (0.55-1.3); PHOSPHOROUS 2.5 mg/dL (2.5-4.9)
[2022-06-15 09:24] LABS: BILIRUBIN,TOTAL 0.4 mg/dL (0.2-1); TOT PROT 5.7 g/dl (6.4-8.2)
[2022-06-15] MEDS: PANTOPRAZOLE SODIUM 40 MG VIAL IVPUSH SCH ×2 (10:13→21:05)
[2022-06-15] MEDS: ENOXAPARIN NA (PORCINE) 40 MG/0.4 ML DISP.SYRIN SQ SCH (10:13)
[2022-06-15] MEDS: clonazePAM 0.5 MG TABLET PO SCH (10:14)
[2022-06-15] MEDS ORDERED: BISACODYL 5 MG TABLET.DR (FP) PO SCH (13:15)
[2022-06-15] MEDS: ACETAMINOPHEN 325 MG TABLET (FP) PO PRN (14:27)
[2022-06-15 15:43] VITALS: BMI 21.9
[2022-06-15] MEDS: ACETAMINOPHEN 1000 MG/100 ML BAG IVPB ONE ×2 (17:38→21:54)
[2022-06-15] MEDS ORDERED: clonazePAM 0.25 MG ODT TABLETS SL ONE (21:00)
[2022-06-16 05:46] VITALS: TEMP 98.1
[2022-06-16] MEDS: SUCRALFATE 1 GM/10 ML UNIT DOSE CUPS PO SCH ×3 (06:50→16:51)
[2022-06-16 09:18] VITALS: BP 129/77; PULSE 78
[2022-06-16] MEDS ORDERED: clonazePAM 0.25 MG ODT TABLETS SL PRN (10:00)
[2022-06-16] MEDS ORDERED: FAMOTIDINE 20 MG TABLET PO SCH (10:00)
[2022-06-16] MEDS: ACETAMINOPHEN 325 MG TABLET (FP) PO PRN (10:26)
[2022-06-16] MEDS: ENOXAPARIN NA (PORCINE) 40 MG/0.4 ML DISP.SYRIN SQ SCH (10:26)
[2022-06-16] MEDS: PANTOPRAZOLE SODIUM 40 MG VIAL IVPUSH SCH (10:26)
[2022-06-16] MEDS: ONDANSETRON 4 MG/2 ML VIAL IVPB PRN (11:12)
== END 2022-06-16 05:50 | disposition home or self-care (01) | DRG 391 ==
LOC: JER 14:44 → JERBED 18:16 → J5S 23:15
PROVIDERS: ATTEND Internal Medicine
PROC: XW033E5 Introduction of Remdesivir Anti-infective into Peripheral Vein, Percutaneous Approach, New Technology Group 5 (ICD-10-PCS; principal; 2022-06-13)
DX: K29.60 Other gastritis without bleeding (principal); U07.1 COVID-19; I10 Essential (primary) hypertension; K21.9 Gastro-esophageal reflux disease without esophagitis; E87.8 Other disorders of electrolyte and fluid balance, not elsewhere classified; K59.00 Constipation, unspecified; R11.2 Nausea with vomiting, unspecified; R10.13 Epigastric pain; E87.6 Hypokalemia; F41.9 Anxiety disorder, unspecified
CPT/HCPCS: 0241U-QW; 36415; 74176-TC; 80053; 81003; 83690; 83735; 84100; 84484; 85025; 85027; 87086; 93005; 93010; 99285-25; C9399

== ENCOUNTER 2022-06-24 14:24 | Inpatient (IN) | payer OTHER, BC ==
[2022-06-24] MEDS ORDERED: ONDANSETRON 4 MG/2 ML VIAL IVPUSH ONE (16:41)
[2022-06-24] MEDS ORDERED: FAMOTIDINE 20 MG/50 ML IVPB 20 MG/50 ML MG IVPB ONE ×2 (16:42→16:45)
[2022-06-24] MEDS ORDERED: ONDANSETRON 4 MG/2 ML VIAL ONE (16:45)
[2022-06-24] MEDS ORDERED: SODIUM CHLORIDE 1,000 ML IV STA (16:56)
[2022-06-24] MEDS ORDERED: ACETAMINOPHEN 1000 MG/100 ML BAG IVPB ONE (17:03)
[2022-06-24] MEDS ORDERED: ACETAMINOPHEN INJECTION 100 ML IVPB ONE (18:35)
[2022-06-24 18:52] LABS: BASO % 0.2 % (0-2.0); EOS % 0.4 % (0-4.5); HEMATOCRIT 42.4 % (32.4-45.2); HEMOGLOBIN 14.7 GM/dL (10.7-15.3); LYMPH % 21.2 % (8-40); MCH 33.2 pg (25.7-33.7); MCHC 34.7 g/dl (32.0-36.0); MEAN CELL VOLUME 95.7 fl (80-96); MEAN PLT VOLUME 8.4 fl (7.5-11.1); MONO % 9.2 % (3.8-10.2); PLATELET COUNT 227 10^3/uL (134-434); RBC 4.43 M/mm3 (3.60-5.2); RDW 13.6 % (11.6-15.6); WHITE BLOOD COUNT 7.2 K/mm3 (4.0-10.0)
[2022-06-24 19:02] LABS: INR 1.05 (0.83-1.09); PROTHROMBIN TIME (PATIENT) 12.1 SEC (9.7-13.0)
[2022-06-24 19:05] LABS: ACTIVATED PTT 31.4 SECONDS (25.2-36.5)
[2022-06-24 19:11] LABS: PHOSPHOROUS 2.9 mg/dL (2.5-4.9)
[2022-06-24] MEDS ORDERED: morphine CARPU-JECT 4 MG/1 ML DISP.SYRIN IVPUSH ONE (19:20)
[2022-06-24] MEDS ORDERED: MAG HYDROX/AL HYDROX/SIMETH 30 ML UNIT-DOSE CUP PO ONE (19:21)
[2022-06-24] MEDS ORDERED: MAG HYDROX/AL HYDROX/SIMETH 30 ML UNIT-DOSE CUP ONE (19:56)
[2022-06-24 20:03] LABS: BLOOD UREA NITROGEN 7.8 mg/dL (7-18)
[2022-06-24 20:06] LABS: CREATININE 1.1 mg/dL (0.55-1.3)
[2022-06-24 20:07] LABS: TOT PROT 7.3 g/dl (6.4-8.2)
[2022-06-24 20:08] LABS: BILIRUBIN,TOTAL 0.7 mg/dL (0.2-1)
[2022-06-24] MEDS ORDERED: POTASSIUM PHOSPHATE 30 MM in DEXTROSE 5%-WATER - 250 ML IVPB ONE (20:09)
[2022-06-24 20:13] LABS: ALBUMIN 4.1 g/dl (3.4-5.0); CALCIUM 10.2 mg/dL (8.5-10.1)
[2022-06-24] MEDS ORDERED: POTASSIUM PHOSPHATE 15 MM in SODIUM CHLORIDE 250 ML IVPB ONE (20:25)
[2022-06-24] MEDS ORDERED: PANTOPRAZOLE 40 MG TABLET PO ONE (21:50)
[2022-06-24] MEDS: LATANOPROST 0.005% OPHTH SOLN 2.5ML BOTTLE OU SCH (21:58)
[2022-06-24] MEDS ORDERED: PANTOPRAZOLE 40 MG TABLET PO SCH (22:00)
[2022-06-24 22:33] LABS: EPI CELLS 2 /uL (0-25.1); HYALINE CASTS 0 /uL (0-3.1); PH,URINE 6.5 (5.0-8.0); URINE APPEARANCE CLEAR; URINE BACTERIA 11 /uL (0-1359); URINE BILIRUBIN NEGATIVE (NEGATIVE); URINE COLOR YELLOW; URINE GLUCOSE (UA) NEGATIVE (NEGATIVE); URINE KETONE NEGATIVE (NEGATIVE); URINE LEUK ESTERASE NEGATIVE (NEGATIVE); URINE NITRITE NEGATIVE (NEGATIVE); URINE PROTEIN NEGATIVE (NEGATIVE); URINE RBC 8 /uL (0-23.9); URINE UROBILINOGEN 0.2 mg/dL (0.2-1.0); URINE WBC 2 /uL (0-25.8)
[2022-06-25] MEDS ORDERED: SODIUM CHLORIDE 1,000 ML IV SCH (00:30)
[2022-06-25] MEDS ORDERED: POTASSIUM CHLORIDE 10 MEQ PREMIX IVPB (POTASSIUM RIDER) IVPB ONE (00:40)
[2022-06-25] MEDS ORDERED: clonazePAM 0.25 MG ODT TABLETS SL PRN (00:46)
[2022-06-25] MEDS: SUCRALFATE 1 GM TABLET (FP) PO SCH ×4 (02:06→22:21)
[2022-06-25] MEDS ORDERED: ONDANSETRON 4 MG/2 ML VIAL ONE (02:10)
[2022-06-25] MEDS: ONDANSETRON 4 MG/2 ML VIAL IVPUSH PRN ×2 (02:22→07:58)
[2022-06-25] MEDS: ACETAMINOPHEN 1000 MG/100 ML BAG IVPB PRN ×4 (03:00→22:21)
[2022-06-25 04:46] VITALS: BMI 22.4
[2022-06-25] MEDS ORDERED: SUCRALFATE 1 GM/10 ML UNIT DOSE CUPS PO SCH (07:00)
[2022-06-25] MEDS ORDERED: PANTOPRAZOLE 40 MG TABLET PO SCH (10:00)
[2022-06-25] MEDS ORDERED: MIRTAZAPINE 15 MG TABLET (FP) PO SCH (10:00)
[2022-06-25] MEDS ORDERED: LORazepam 1 MG TABLET PO PRN (10:00)
[2022-06-25] MEDS ORDERED: FAMOTIDINE 20 MG TABLET PO SCH (10:00)
[2022-06-25] MEDS: ENOXAPARIN NA (PORCINE) 40 MG/0.4 ML DISP.SYRIN SQ SCH (10:10)
[2022-06-25] MEDS: HYDROCHLOROTHIAZIDE 25 MG TABLET (FP) PO SCH (10:10)
[2022-06-25 10:46] LABS: HEMATOCRIT 43.1 % (32.4-45.2); HEMOGLOBIN 14.6 GM/dL (10.7-15.3); MCHC 33.9 g/dl (32.0-36.0); MEAN CELL VOLUME 97.2 fl (80-96); MEAN PLT VOLUME 9.2 fl (7.5-11.1); PLATELET COUNT 232 10^3/uL (134-434); RBC 4.44 M/mm3 (3.60-5.2); RDW 13.8 % (11.6-15.6); WHITE BLOOD COUNT 5.5 K/mm3 (4.0-10.0)
[2022-06-25 11:34] LABS: CALCIUM 9.4 mg/dL (8.5-10.1)
[2022-06-25 11:35] LABS: BLOOD UREA NITROGEN 4.9 mg/dL (7-18); MAGNESIUM 2.2 mg/dL (1.8-2.4)
[2022-06-25 11:38] LABS: CREATININE 0.8 mg/dL (0.55-1.3); PHOSPHOROUS 3.4 mg/dL (2.5-4.9)
[2022-06-25] MEDS: LORATADINE 10 MG TABLET PO SCH (11:46)
[2022-06-25] MEDS: METOCLOPRAMIDE HCL INJECTION 10 MG/2 ML VIAL IVPUSH PRN ×2 (12:41→17:23)
[2022-06-25] MEDS: SIMETHICONE 80 MG TAB.CHEW (FP) PO SCH ×2 (17:21→22:22)
[2022-06-25] MEDS: clonazePAM 0.25 MG ODT TABLETS SL PRN (20:09)
[2022-06-25] MEDS: LATANOPROST 0.005% OPHTH SOLN 2.5ML BOTTLE OU SCH (22:22)
[2022-06-26] MEDS: METOCLOPRAMIDE HCL INJECTION 10 MG/2 ML VIAL IVPUSH PRN (05:52)
[2022-06-26] MEDS: clonazePAM 0.25 MG ODT TABLETS SL PRN ×2 (07:52→21:15)
[2022-06-26] MEDS ORDERED: ACETAMINOPHEN 1000 MG/100 ML BAG IVPB PRN (09:00)
[2022-06-26 09:54] LABS: EOS % 1.1 % (0-4.5); HEMATOCRIT 40.8 % (32.4-45.2); HEMOGLOBIN 14.3 GM/dL (10.7-15.3); LYMPH % 16.1 % (8-40); MCH 33.8 pg (25.7-33.7); MCHC 35.2 g/dl (32.0-36.0); MEAN PLT VOLUME 8.5 fl (7.5-11.1); MONO % 7.8 % (3.8-10.2); PLATELET COUNT 194 10^3/uL (134-434); RBC 4.25 M/mm3 (3.60-5.2); RDW 13.5 % (11.6-15.6); WHITE BLOOD COUNT 5.5 K/mm3 (4.0-10.0)
[2022-06-26] MEDS: SUCRALFATE 1 GM TABLET (FP) PO SCH ×4 (10:01→21:31)
[2022-06-26] MEDS: HYDROCHLOROTHIAZIDE 25 MG TABLET (FP) PO SCH (10:03)
[2022-06-26] MEDS: FAMOTIDINE 20 MG TABLET PO SCH (10:04)
[2022-06-26] MEDS: LORATADINE 10 MG TABLET PO SCH (10:04)
[2022-06-26] MEDS: SIMETHICONE 80 MG TAB.CHEW (FP) PO SCH ×4 (10:04→21:16)
[2022-06-26] MEDS: ENOXAPARIN NA (PORCINE) 40 MG/0.4 ML DISP.SYRIN SQ SCH (10:08)
[2022-06-26 10:28] LABS: CALCIUM 9.3 mg/dL (8.5-10.1)
[2022-06-26 10:32] LABS: CREATININE 0.9 mg/dL (0.55-1.3)
[2022-06-26] MEDS ORDERED: BISACODYL 10 MG SUPP.RECT PR ONE (10:48)
[2022-06-26] MEDS ORDERED: DEXTROSE 5%-NORMAL SALINE 1,000 ML IV SCH (14:00)
[2022-06-26] MEDS: ONDANSETRON 4 MG/2 ML VIAL IVPB SCH ×3 (14:12→21:15)
[2022-06-26] MEDS: KCL 10 MEQ IVPB 10 MEQ/100 ML INFUS.BAG IVPB SCH ×2 (14:12→16:14)
[2022-06-26] MEDS: PANTOPRAZOLE SODIUM 40 MG VIAL IVPUSH SCH ×2 (14:12→21:15)
[2022-06-26] MEDS: METOCLOPRAMIDE HCL INJECTION 10 MG/2 ML VIAL IVPB SCH ×2 (16:21→23:28)
[2022-06-26] MEDS: LATANOPROST 0.005% OPHTH SOLN 2.5ML BOTTLE OU SCH (21:23)
[2022-06-27] MEDS: ONDANSETRON 4 MG/2 ML VIAL IVPB SCH (00:24)
[2022-06-27] MEDS ORDERED: ONDANSETRON 4 MG/2 ML VIAL IVPB PRN (05:20)
[2022-06-27] MEDS ORDERED: INSULIN (NOVOLOG) ASPART 100 UNITS/ML 10ML VIAL ONE (06:49)
[2022-06-27] MEDS: METOCLOPRAMIDE HCL INJECTION 10 MG/2 ML VIAL IVPB SCH ×2 (08:15→16:52)
[2022-06-27 09:06] LABS: BASO % 0.9 % (0-2.0); EOS % 4.5 % (0-4.5); LYMPH % 15.8 % (8-40); MCH 33.2 pg (25.7-33.7); MCHC 34.9 g/dl (32.0-36.0); MEAN CELL VOLUME 95.2 fl (80-96); MEAN PLT VOLUME 8.6 fl (7.5-11.1); MONO % 9.3 % (3.8-10.2); NEUT % 69.5 % (42.8-82.8); PLATELET COUNT 189 10^3/uL (134-434); RBC 4.21 M/mm3 (3.60-5.2)
[2022-06-27] MEDS ORDERED: MAGNESIUM HYDROX 2400MG/30ML ORAL SUSPENSION 30 ML CUP PO STA (09:06)
[2022-06-27 09:29] LABS: ALBUMIN 3.4 g/dl (3.4-5.0); BLOOD UREA NITROGEN 7.2 mg/dL (7-18)
[2022-06-27 09:34] LABS: BILIRUBIN,TOTAL 0.6 mg/dL (0.2-1); TOT PROT 6.2 g/dl (6.4-8.2)
[2022-06-27] MEDS: FAMOTIDINE 20 MG TABLET PO SCH (09:44)
[2022-06-27] MEDS: ISOSORBIDE MONONITRATE 30 MG TAB.SR.24H (FP) PO SCH (09:44)
[2022-06-27] MEDS: PANTOPRAZOLE SODIUM 40 MG VIAL IVPUSH SCH ×2 (09:44→21:09)
[2022-06-27] MEDS: LORATADINE 10 MG TABLET PO SCH (09:45)
[2022-06-27] MEDS: SUCRALFATE 1 GM TABLET (FP) PO SCH ×4 (09:45→21:09)
[2022-06-27] MEDS: ENOXAPARIN NA (PORCINE) 40 MG/0.4 ML DISP.SYRIN SQ SCH (09:46)
[2022-06-27] MEDS: SIMETHICONE 80 MG TAB.CHEW (FP) PO SCH ×4 (09:48→21:09)
[2022-06-27] MEDS: clonazePAM 0.25 MG ODT TABLETS SL PRN (16:57)
[2022-06-27] MEDS ORDERED: ACETAMINOPHEN 325 MG TABLET (FP) PO PRN (17:59)
[2022-06-27] MEDS: LATANOPROST 0.005% OPHTH SOLN 2.5ML BOTTLE OU SCH (21:11)
[2022-06-28] MEDS: METOCLOPRAMIDE HCL INJECTION 10 MG/2 ML VIAL IVPB SCH ×3 (00:27→17:09)
[2022-06-28] MEDS ORDERED: ACETAMINOPHEN 325 MG TABLET (FP) PO PRN (06:17)
[2022-06-28] MEDS: ACETAMINOPHEN 325 MG TABLET (FP) PO PRN ×2 (08:35→13:59)
[2022-06-28] MEDS: clonazePAM 0.25 MG ODT TABLETS SL PRN ×2 (08:35→19:28)
[2022-06-28] MEDS: LORATADINE 10 MG TABLET PO SCH (09:13)
[2022-06-28] MEDS: FAMOTIDINE 20 MG TABLET PO SCH (09:13)
[2022-06-28] MEDS: ENOXAPARIN NA (PORCINE) 40 MG/0.4 ML DISP.SYRIN SQ SCH (09:13)
[2022-06-28] MEDS: SUCRALFATE 1 GM TABLET (FP) PO SCH ×4 (09:13→23:00)
[2022-06-28] MEDS: SIMETHICONE 80 MG TAB.CHEW (FP) PO SCH ×4 (09:13→21:09)
[2022-06-28] MEDS: ISOSORBIDE MONONITRATE 30 MG TAB.SR.24H (FP) PO SCH (09:13)
[2022-06-28] MEDS: PANTOPRAZOLE SODIUM 40 MG VIAL IVPUSH SCH ×2 (09:29→21:11)
[2022-06-28 12:02] LABS: BASO % 0.5 % (0-2.0); EOS % 1.7 % (0-4.5); HEMATOCRIT 37.2 % (32.4-45.2); MCH 33.9 pg (25.7-33.7); MCHC 35.1 g/dl (32.0-36.0); MEAN CELL VOLUME 96.8 fl (80-96); MEAN PLT VOLUME 8.6 fl (7.5-11.1); MONO % 8.6 % (3.8-10.2); NEUT % 77.2 % (42.8-82.8); PLATELET COUNT 187 10^3/uL (134-434); RBC 3.84 M/mm3 (3.60-5.2); RDW 13.4 % (11.6-15.6); WHITE BLOOD COUNT 5.5 K/mm3 (4.0-10.0)
[2022-06-28 12:49] LABS: CALCIUM 9.3 mg/dL (8.5-10.1)
[2022-06-28 12:54] LABS: BLOOD UREA NITROGEN 10.1 mg/dL (7-18)
[2022-06-28 12:57] LABS: CREATININE 0.9 mg/dL (0.55-1.3)
[2022-06-28] MEDS ORDERED: ACETAMINOPHEN 1000 MG/100 ML BAG IVPB PRN ×2 (15:12→16:06)
[2022-06-28] MEDS: LATANOPROST 0.005% OPHTH SOLN 2.5ML BOTTLE OU SCH (21:12)
[2022-06-28] MEDS ORDERED: MIRTAZAPINE 15 MG TABLET (FP) PO SCH (22:00)
[2022-06-29] MEDS: METOCLOPRAMIDE HCL INJECTION 10 MG/2 ML VIAL IVPB SCH ×3 (00:31→16:38)
[2022-06-29] MEDS: ISOSORBIDE MONONITRATE 30 MG TAB.SR.24H (FP) PO SCH (09:39)
[2022-06-29] MEDS: LORATADINE 10 MG TABLET PO SCH (09:39)
[2022-06-29] MEDS: SIMETHICONE 80 MG TAB.CHEW (FP) PO SCH ×3 (09:40→17:15)
[2022-06-29] MEDS: ENOXAPARIN NA (PORCINE) 40 MG/0.4 ML DISP.SYRIN SQ SCH (09:40)
[2022-06-29] MEDS: PANTOPRAZOLE SODIUM 40 MG VIAL IVPUSH SCH (09:40)
[2022-06-29] MEDS: FAMOTIDINE 20 MG TABLET PO SCH (09:40)
[2022-06-29] MEDS: SUCRALFATE 1 GM TABLET (FP) PO SCH ×3 (09:40→17:16)
[2022-06-29] MEDS ORDERED: MAGNESIUM HYDROX 2400MG/30ML ORAL SUSPENSION 30 ML CUP PO PRN (10:16)
[2022-06-29 11:01] VITALS: PULSE 89; RESP 18
[2022-06-29] MEDS: clonazePAM 0.25 MG ODT TABLETS SL PRN (12:20)
[2022-06-29] MEDS ORDERED: ACETAMINOPHEN 1000 MG/100 ML BAG IVPB PRN (13:44)
[2022-06-29] MEDS ORDERED: ACETAMINOPHEN/CAFFEINE/BUTALBITAL 1 TAB PO ONE (14:49)
[2022-06-29 15:03] VITALS: BP 134/89; TEMP 98.3
[2022-06-30] MEDS ORDERED: MAGNESIUM HYDROX 2400MG/30ML ORAL SUSPENSION 30 ML CUP PO SCH (10:00)
== END 2022-06-29 19:35 | disposition home health service (06) | DRG 395 ==
LOC: JER 14:24 → JERBED 20:17 → J6S 06-25 02:42
PROVIDERS: ADMIT Internal Medicine; ATTEND Internal Medicine
DX: K55.1 Chronic vascular disorders of intestine (principal); K21.9 Gastro-esophageal reflux disease without esophagitis; I10 Essential (primary) hypertension; K64.8 Other hemorrhoids; F41.8 Other specified anxiety disorders; E78.5 Hyperlipidemia, unspecified; K29.70 Gastritis, unspecified, without bleeding; R11.2 Nausea with vomiting, unspecified; E87.6 Hypokalemia; L27.0 Generalized skin eruption due to drugs and medicaments taken internally; Z88.0 Allergy status to penicillin; Z85.3 Personal history of malignant neoplasm of breast; T40.2X5A Adverse effect of other opioids, initial encounter
CPT/HCPCS: 36415; 74021-TC-FY; 74174-TC; 76705-TC; 80048; 80053; 81003; 81240; 81241; 83519; 83605; 83690; 83735; 84100; 84484; 85025; 85027; 85303; 85306; 85610; 85613; 85651; 85730; 85732; 86140; 86682; 87324; 87449; 93005; 93010; 99285-25; C9803-CS; U0003; U0005

== ENCOUNTER 2022-07-03 13:43 | Emergency (ER) | payer OTHER, BC ==
[2022-07-03 13:54] VITALS: BP 161/88; PULSE 95; RESP 20; TEMP 97.5; BMI 25.5
[2022-07-03] MEDS ORDERED: ACETAMINOPHEN 1000 MG/100 ML BAG IVPB ONE (15:04)
[2022-07-03] MEDS ORDERED: SODIUM CHLORIDE 0.9% 500 ML INFUS.BAG IV ONE (15:04)
[2022-07-03] MEDS ORDERED: METOCLOPRAMIDE HCL INJECTION 10 MG/2 ML VIAL IVPUSH ONE (15:04)
[2022-07-03] MEDS ORDERED: METOCLOPRAMIDE HCL INJECTION 10 MG/2 ML VIAL ONE (15:52)
[2022-07-03] MEDS ORDERED: ACETAMINOPHEN INJECTION 100 ML IVPB ONE (15:53)
[2022-07-03 16:02] LABS: BASO % 0.8 % (0-2.0); HEMATOCRIT 40.6 % (32.4-45.2); HEMOGLOBIN 13.9 GM/dL (10.7-15.3); LYMPH % 18.6 % (8-40); MCH 32.9 pg (25.7-33.7); MCHC 34.2 g/dl (32.0-36.0); MEAN CELL VOLUME 96.1 fl (80-96); MEAN PLT VOLUME 8.9 fl (7.5-11.1); MONO % 7.1 % (3.8-10.2); NEUT % 72.5 % (42.8-82.8); PLATELET COUNT 226 10^3/uL (134-434); RBC 4.22 M/mm3 (3.60-5.2); RDW 13.9 % (11.6-15.6); WHITE BLOOD COUNT 5.8 K/mm3 (4.0-10.0)
[2022-07-03 16:10] LABS: INR 1.03 (0.83-1.09); PROTHROMBIN TIME (PATIENT) 11.9 SEC (9.7-13.0)
[2022-07-03 16:12] LABS: ACTIVATED PTT 31.9 SECONDS (25.2-36.5)
[2022-07-03 16:26] LABS: ALBUMIN 3.7 g/dl (3.4-5.0); BLOOD UREA NITROGEN 13.1 mg/dL (7-18); CALCIUM 9.9 mg/dL (8.5-10.1); MAGNESIUM 2.3 mg/dL (1.8-2.4)
[2022-07-03 16:29] LABS: CREATININE 0.8 mg/dL (0.55-1.3)
[2022-07-03 16:31] LABS: BILIRUBIN,TOTAL 0.4 mg/dL (0.2-1)
[2022-07-03] MEDS ORDERED: DEXAMETHASONE SOD PHOSPHATE 10 MG/1 ML VIAL IVPUSH ONE (17:02)
[2022-07-03] MEDS ORDERED: MAGNESIUM SULF 50% (8.12 MEQ/2 ML-1 GM VIAL) IVPB ONE (17:02)
== END 2022-07-03 17:53 | disposition home or self-care (01) ==
LOC: JER 13:43
PROC: 3E0333Z Introduction of Anti-inflammatory into Peripheral Vein, Percutaneous Approach (ICD-10-PCS; principal; 2022-07-03)
PROC: 3E033GC Introduction of Other Therapeutic Substance into Peripheral Vein, Percutaneous Approach (ICD-10-PCS; 2022-07-03)
DX: G43.901 Migraine, unspecified, not intractable, with status migrainosus (principal)
CPT/HCPCS: 36415; 80053; 83735; 85025; 85610; 85730; 99284-25